=== PATIENT | male | born 1955 | race Caucasian/White ===

== ENCOUNTER → 2017-08-28 | Outpatient (CLI) | payer SELFPAY ==
--- NOTE | 2017-08-28 14:34 | RADIOLOGY IMAGING REPORT ---
FACILITY: [facility] PATIENT NAME: Osmin Wang : 1955 MR: [id number] V: [id number] EXAM DATE: ORDERING PHYSICIAN: EMMA SERNA TECHNOLOGIST: Location: [facility] Patient: Osmin Wang : 1955 Visit/Account:[id number] Date of Sevice: 08/28/2017 KIDNEYS Provided history: Abdominal pain Additional pertinent history: none COMPARISON STUDIES: none FINDINGS: Measurements: Right kidney: 10.4 x 5.5 x 5.9 cm Left kidney: 10.9 x 6.8 x 5.3 cm Imaging: Right kidney:Normal cortical thickness and echogenicity. No hydronephrosis. No shadowing stones. N o suspect masses. Benign-appearing 21 mm cyst lower pole. No solid masses. Left kidney:Normal cortical thickness and echogenicity. No hydronephrosis. No shadowing stones. The re are scattered benign-appearing cysts. In the upper pole, largest measures up to 4.8 cm. One cortic al cyst in the midpole measures just over 2 cm and has multifocal round hyperechoic structures along the wall that do not demonstrate dependent shadowing. Bladder: Smooth wall without filling defect. Both bladder jets are identified. Prostate contains calcifications. Measures up to 5.7 x 6.1 x 5.0 cm, mildly enlarged. Abdominal aorta and IVC: Aorta and IVC are patent by Doppler ultrasound. IMPRESSION: 1. No evidence hydronephrosis. 2. Bilateral renal cysts. One of these demonstrates mildly, located features midpole left kidney. The echogenic foci could reflect minimal calcification or possibly fat, less likely a more aggressive pr ocess. At a minimum, suggest a follow-up ultrasound to document stability in size in 2-3 months. Alte rnatively, perform MRI without and with IV gadolinium for further assessment now. 3. Mild prostatic enlargement. Report called to EMMA SERNA, 08/28/2017 2:22 PM. Report Dictated By: Baljit Farris MD at 08/28/2017 2:22 PM Report E-Signed By: Baljit Farris MD at 08/28/2017 2:30 PM WSN:[id number]
== END ==
LOC: US 13:16
PROVIDERS: ATTEND Nurse Practitioner Family
DX: N28.1 Cyst of kidney, acquired (principal); N40.0 Benign prostatic hyperplasia without lower urinary tract symptoms
CPT/HCPCS: 76705